=== PATIENT | male | born 1965 | race African-American/Black ===

== ENCOUNTER 2021-04-27 04:30 | Day surgery (SDC) | payer OTHER ==
[2021-04-26 11:29] VITALS: BMI 34.0
[2021-04-27 06:27] VITALS: BP 137/79; PULSE 60; TEMP 97
[2021-04-27] MEDS ORDERED: BUPIVACAINE HCL/PF 0.25% (2.5MG/ML) 10 ML VIAL ONE (07:18)
[2021-04-27] MEDS ORDERED: LIDOCAINE HCL/PF 1% SDV 5ML VIAL ONE (07:18)
[2021-04-27] MEDS ORDERED: BUPIVACAINE HCL/PF 0.5% (5MG/ML) 10 ML VIAL ONE (07:19)
[2021-04-27] MEDS ORDERED: BUPIVACAINE HCL/PF 0.75% 10 ML VIAL ONE (07:19)
[2021-04-27] MEDS ORDERED: DEXAMETHASONE SOD PHOSPHATE 10 MG/1 ML VIAL ONE (08:47)
== END 2021-04-27 08:40 | disposition home or self-care (01) ==
LOC: JASU-SURG 04:30
PROVIDERS: ATTEND Pain Medicine Pain Medicine
DX: Z53.8 Procedure and treatment not carried out for other reasons (principal)
CPT/HCPCS: J1100

== ENCOUNTER 2021-04-27 08:48 | Emergency (ER) | payer OTHER ==
[2021-04-27 08:56] VITALS: BP 139/99; PULSE 60; TEMP 97.8; BMI 34.4
[2021-04-27] MEDS ORDERED: ACETAMINOPHEN 1000 MG/100 ML VIAL (NON FORMULARY) IVPB ONE (10:34)
[2021-04-27] MEDS ORDERED: ACETAMINOPHEN INJECTION 100 ML IVPB ONE (11:14)
[2021-04-27 12:21] LABS: BASO % 0.7 % (0-2.0); EOS % 2.8 % (0-4.5); HEMATOCRIT 32.8 % (35.4-49); LYMPH % 23.9 % (8-40); MCH 27.7 pg (25.7-33.7); MCHC 33.5 g/dl (32.0-35.9); MEAN CELL VOLUME 82.7 fl (80-96); MEAN PLT VOLUME 7.6 fl (7.5-11.1); MONO % 6.3 % (3.8-10.2); NEUT % 66.3 % (42.8-82.8); PLATELET COUNT 415 10^3/uL (134-434); RBC 3.97 M/mm3 (4.00-5.60); RDW 15.4 % (11.9-15.9); WHITE BLOOD COUNT 7.7 K/mm3 (4.0-10.0)
[2021-04-27 12:29] LABS: INR 0.86 (0.83-1.09); PROTHROMBIN TIME (PATIENT) 10.6 SEC (9.7-13.0)
[2021-04-27 12:31] LABS: ACTIVATED PTT 32.9 SECONDS (25.2-36.5)
[2021-04-27 12:47] LABS: CHLORIDE 108 mmol/L (98-107); SODIUM 142 mmol/L (136-145)
[2021-04-27 12:49] LABS: ANION GAP 8 MMOL/L (8-16); CO2 27 mmol/L (21-32); GLUCOSE,RANDOM 100 mg/dL (74-106)
[2021-04-27 12:50] LABS: ALBUMIN 2.7 g/dl (3.4-5.0); BLOOD UREA NITROGEN 16.3 mg/dL (7-18); MAGNESIUM 1.8 mg/dL (1.8-2.4)
[2021-04-27 12:53] LABS: CREATININE 1.3 mg/dL (0.55-1.3); SGOT/AST 9 U/L (15-37); SGPT/ALT 18 U/L (13-61)
[2021-04-27 12:54] LABS: BILIRUBIN,TOTAL 0.1 mg/dL (0.2-1); TOT PROT 7.2 g/dl (6.4-8.2)
[2021-04-27 12:55] LABS: ALK PHOS 117 U/L (45-117)
[2021-04-27] MEDS ORDERED: KETOROLAC TROMETHAMINE 30 MG/1 ML VIAL IVPUSH ONE (14:45)
[2021-04-27] MEDS ORDERED: KETOROLAC TROMETHAMINE 30 MG/1 ML VIAL ONE (14:53)
== END 2021-04-27 17:39 | disposition home or self-care (01) ==
LOC: JER 08:48
PROC: 3E033NZ Introduction of Analgesics, Hypnotics, Sedatives into Peripheral Vein, Percutaneous Approach (ICD-10-PCS; principal; 2021-04-27)
PROC: 3E0333Z Introduction of Anti-inflammatory into Peripheral Vein, Percutaneous Approach (ICD-10-PCS; 2021-04-27)
DX: J92.9 Pleural plaque without asbestos (principal)
CPT/HCPCS: 36415; 71046-TC-FY; 71250-TC; 80053; 82550; 83735; 84484; 85025; 85610; 85730; 93005; 93010; 96374; 96375; 99285-25; J0131

== ENCOUNTER → 2021-05-11 | Day surgery (SDC) | payer OTHER ==
[~2021-05-11] MED LIST: BUPIVACAINE HCL/PF 0.5% (5MG/ML) 10 ML VIAL ONE; DEXAMETHASONE SOD PHOSPHATE 10 MG/1 ML VIAL ONE; LIDOCAINE HCL/PF 1% SDV 5ML VIAL ONE
== END | disposition home or self-care (01) ==
LOC: JASU-SURG 04:30
PROVIDERS: ATTEND Pain Medicine Pain Medicine
DX: Z53.8 Procedure and treatment not carried out for other reasons (principal)
CPT/HCPCS: J1100

== ENCOUNTER 2023-10-16 02:00 | Inpatient (IN) | payer OTHER ==
[2023-10-16] MEDS ORDERED: morphine SULFATE 4 MG/ML VIAL ONE ×2 (02:20→05:59)
[2023-10-16] MEDS ORDERED: ONDANSETRON 4 MG/2 ML VIAL ONE ×2 (02:20→11:53)
[2023-10-16] MEDS ORDERED: ACETAMINOPHEN INJECTION 100 ML IVPB ONE ×2 (02:20→11:53)
[2023-10-16] MEDS: ONDANSETRON 4 MG/2 ML VIAL IVPUSH ONE (02:40)
[2023-10-16] MEDS: ACETAMINOPHEN 1000 MG/100 ML BAG IVPB ONE (02:40)
[2023-10-16] MEDS: morphine CARPU-JECT 4 MG/1 ML DISP.SYRIN IVPUSH ONE ×2 (02:40→06:09)
[2023-10-16] MEDS: LACTATED RINGERS SOLUTION 1,000 ML/1,000 ML INFUS.BAG IV SCH (02:41)
[2023-10-16 02:47] LABS: BASO % 0.6 % (0-2.0); EOS % 0.2 % (0-4.5); HEMATOCRIT 42.1 % (35.4-49); HEMOGLOBIN 14.1 GM/dL (11.7-16.9); LYMPH % 14.5 % (8-40); MCH 29.6 pg (25.7-33.7); MCHC 33.4 g/dl (32.0-35.9); MEAN CELL VOLUME 88.7 fl (80-96); MEAN PLT VOLUME 8.4 fl (7.5-11.1); MONO % 5.6 % (3.8-10.2); NEUT % 79.1 % (42.8-82.8); PLATELET COUNT 293 10^3/uL (134-434); RBC 4.75 M/mm3 (4.00-5.60)
[2023-10-16 02:53] LABS: VENOUS BASE EXCESS -0.2 mmol/L (-2-2); VENOUS O2 SATURATION 42.5 % (70-80); VENOUS PCO2 34.2 mmHg (38-52); VENOUS PH 7.447 (7.310-7.410)
[2023-10-16 03:04] LABS: INR 0.92 (0.83-1.09); PROTHROMBIN TIME (PATIENT) 10.7 SEC (9.7-13.0)
[2023-10-16 03:06] LABS: ACTIVATED PTT 30.2 SECONDS (25.2-36.5)
[2023-10-16 03:24] LABS: CHLORIDE 103 mmol/L (98-107); SODIUM 134 mmol/L (136-145)
[2023-10-16 03:26] LABS: CALCIUM 8.9 mg/dL (8.5-10.1)
[2023-10-16 03:27] LABS: BLOOD UREA NITROGEN 10.4 mg/dL (7-18); CO2 22 mmol/L (21-32); GLUCOSE,RANDOM 90 mg/dL (74-106)
[2023-10-16 03:30] LABS: CREATININE 1.2 mg/dL (0.55-1.3); SGOT/AST 55 U/L (15-37)
[2023-10-16 03:31] LABS: BILIRUBIN,TOTAL 0.4 mg/dL (0.2-1); TOT PROT 7.6 g/dl (6.4-8.2)
[2023-10-16 03:33] LABS: ALK PHOS 94 U/L (45-117)
[2023-10-16 03:46] LABS: ANION GAP 9 mmol/L (4-13); POTASSIUM 7.3 mmol/L (3.5-5.1); SGPT/ALT 24 U/L (13-61)
[2023-10-16 04:19] LABS: LACTIC ACID 3.4 mmol/L (0.4-2.0)
[2023-10-16] MEDS: DEXTROSE 5%-LACTATED RINGERS 1,000 ML IV SCH ×2 (04:56→21:48)
[2023-10-16 04:59] LABS: CALCIUM 8.2 mg/dL (8.5-10.1)
[2023-10-16 05:00] LABS: BLOOD UREA NITROGEN 8.6 mg/dL (7-18)
[2023-10-16 05:03] LABS: CREATININE 0.8 mg/dL (0.55-1.3)
[2023-10-16] MEDS ORDERED: ACETAMINOPHEN 1000 MG/100 ML BAG IVPB PRN ×3 (06:05→17:02)
[2023-10-16] MEDS ORDERED: morphine CARPU-JECT 4 MG/1 ML DISP.SYRIN IVPUSH PRN (06:05)
[2023-10-16] MEDS: ONDANSETRON 4 MG/2 ML VIAL IVPUSH SCH ×2 (06:17→18:15)
[2023-10-16] MEDS: SODIUM CHLORIDE 1,000 ML IV SCH (06:17)
[2023-10-16 09:23] VITALS: BMI 26.3
[2023-10-16 09:29] LABS: EOS % 0.5 % (0-4.5); HEMATOCRIT 39.7 % (35.4-49); HEMOGLOBIN 13.1 GM/dL (11.7-16.9); LYMPH % 21.3 % (8-40); MCH 29.3 pg (25.7-33.7); MEAN CELL VOLUME 88.8 fl (80-96); MEAN PLT VOLUME 8.9 fl (7.5-11.1); MONO % 5.6 % (3.8-10.2); NEUT % 71.6 % (42.8-82.8); PLATELET COUNT 262 10^3/uL (134-434); RBC 4.47 M/mm3 (4.00-5.60); RDW 14.6 % (11.9-15.9); WHITE BLOOD COUNT 10.5 K/mm3 (4.0-10.0)
[2023-10-16 09:49] LABS: POTASSIUM 4.2 mmol/L (3.5-5.1)
[2023-10-16 09:52] LABS: CALCIUM 8.7 mg/dL (8.5-10.1)
[2023-10-16 09:53] LABS: BLOOD UREA NITROGEN 7.6 mg/dL (7-18)
[2023-10-16 09:56] LABS: CREATININE 0.8 mg/dL (0.55-1.3); PHOSPHOROUS 4.3 mg/dL (2.5-4.9)
[2023-10-16 09:57] LABS: BILIRUBIN,TOTAL 0.6 mg/dL (0.2-1); TOT PROT 6.5 g/dl (6.4-8.2)
[2023-10-16] MEDS: NICOTINE 7 MG/24 HOURS TOPICAL PATCH TD SCH (10:00)
[2023-10-16] MEDS ORDERED: SUCCINYLCHOLINE CHLORIDE 200 MG/10 ML SYRINGE ONE (11:29)
[2023-10-16] MEDS ORDERED: FENTANYL CITRATE/PF 50 MCG/ML VIAL ONE ×3 (11:29→16:31)
[2023-10-16] MEDS ORDERED: PROPOFOL 20 ML ONE (11:29)
[2023-10-16] MEDS ORDERED: ROCURONIUM BROMIDE 50 MG/5 ML SYRINGE ONE ×3 (11:42→15:20)
[2023-10-16] MEDS ORDERED: SUGAMMADEX SODIUM 200 MG/2 ML VIAL ONE (11:43)
[2023-10-16] MEDS ORDERED: DEXAMETHASONE SOD PHOSPHATE 4 MG/1 ML VIAL ONE (11:53)
[2023-10-16] MEDS ORDERED: cefOXitin SODIUM 2 GM VIAL (RESTRICTED TO ID) IVPB ONE (11:53)
[2023-10-16] MEDS ORDERED: KETOROLAC TROMETHAMINE 30 MG/1 ML VIAL ONE (11:53)
[2023-10-16] MEDS: cefOXitin SODIUM 2 GM VIAL (RESTRICTED TO ID) IVPB ONE (11:53)
[2023-10-16] MEDS: BUPIVACAINE HCL/PF 0.25% (2.5MG/ML) 10 ML VIAL IJ ONE ×3 (12:05→16:30)
[2023-10-16] MEDS: CHLORHEXIDINE GLUCONATE 4% CLEANSER FOR DECOLONIZATION TP SCH (18:45)
[2023-10-16] MEDS ORDERED: ONDANSETRON 4 MG/2 ML VIAL IVPUSH PRN (21:44)
[2023-10-17 08:49] LABS: HEMATOCRIT 38.7 % (35.4-49); HEMOGLOBIN 12.6 GM/dL (11.7-16.9); MCH 29.1 pg (25.7-33.7); MCHC 32.4 g/dl (32.0-35.9); MEAN CELL VOLUME 89.6 fl (80-96); MEAN PLT VOLUME 8.2 fl (7.5-11.1); PLATELET COUNT 247 10^3/uL (134-434); RBC 4.32 M/mm3 (4.00-5.60); RDW 14.5 % (11.9-15.9); WHITE BLOOD COUNT 7.8 K/mm3 (4.0-10.0)
[2023-10-17 09:09] LABS: CALCIUM 8.4 mg/dL (8.5-10.1)
[2023-10-17 09:10] LABS: ALBUMIN 2.6 g/dl (3.4-5.0); BLOOD UREA NITROGEN 8.1 mg/dL (7-18)
[2023-10-17 09:13] LABS: PHOSPHOROUS 4.1 mg/dL (2.5-4.9)
[2023-10-17 09:14] LABS: BILIRUBIN,TOTAL 0.7 mg/dL (0.2-1)
[2023-10-17 09:15] LABS: TOT PROT 5.8 g/dl (6.4-8.2)
[2023-10-17] MEDS: oxyCODONE HCL 5 MG TABLET PO PRN (09:18)
[2023-10-17] MEDS: NICOTINE 7 MG/24 HOURS TOPICAL PATCH TD SCH (09:18)
[2023-10-17] MEDS: LACTATED RINGERS SOLUTION 1,000 ML IV SCH (09:18)
[2023-10-18 07:59] LABS: HEMATOCRIT 40.5 % (35.4-49); HEMOGLOBIN 13.2 GM/dL (11.7-16.9); MCH 29.2 pg (25.7-33.7); MCHC 32.5 g/dl (32.0-35.9); MEAN CELL VOLUME 89.9 fl (80-96); MEAN PLT VOLUME 8.3 fl (7.5-11.1); PLATELET COUNT 253 10^3/uL (134-434); POTASSIUM 4.1 mmol/L (3.5-5.1); RDW 14.5 % (11.9-15.9); WHITE BLOOD COUNT 7.3 K/mm3 (4.0-10.0)
[2023-10-18 08:06] LABS: BLOOD UREA NITROGEN 6.4 mg/dL (7-18); CALCIUM 8.8 mg/dL (8.5-10.1)
[2023-10-18 08:07] LABS: ALBUMIN 2.5 g/dl (3.4-5.0)
[2023-10-18 08:10] LABS: CREATININE 0.9 mg/dL (0.55-1.3)
[2023-10-18 08:11] LABS: BILIRUBIN,TOTAL 0.6 mg/dL (0.2-1); TOT PROT 5.8 g/dl (6.4-8.2)
[2023-10-18] MEDS: diphenhydrAMINE HCL 25 MG CAPSULE (FP) PO ONE (10:18)
[2023-10-18] MEDS: KETOROLAC TROMETHAMINE 15 MG/ML VIAL IM SCH (10:33)
[2023-10-18] MEDS: ACETAMINOPHEN 1000 MG/100 ML BAG IVPB SCH (15:34)
[2023-10-19] MEDS: ENOXAPARIN NA (PORCINE) 40 MG/0.4 ML DISP.SYRIN SQ SCH (09:21)
[2023-10-19 09:50] VITALS: RESP 20
[2023-10-19 10:07] LABS: HEMATOCRIT 38.9 % (35.4-49); MCH 29.5 pg (25.7-33.7); MCHC 33.3 g/dl (32.0-35.9); MEAN CELL VOLUME 88.6 fl (80-96); MEAN PLT VOLUME 8.6 fl (7.5-11.1); PLATELET COUNT 247 10^3/uL (134-434); RBC 4.39 M/mm3 (4.00-5.60); RDW 14.7 % (11.9-15.9); WHITE BLOOD COUNT 6.6 K/mm3 (4.0-10.0)
[2023-10-19] MEDS: POLYETHYLENE GLYCOL (HEALTHYLAX) 3350 17 GM PACKET PO ONE (10:12)
[2023-10-19] MEDS: diphenhydrAMINE HCL 25 MG CAPSULE (FP) PO ONE (10:12)
[2023-10-19 10:22] LABS: POTASSIUM 3.8 mmol/L (3.5-5.1)
[2023-10-19 10:32] LABS: CALCIUM 8.6 mg/dL (8.5-10.1)
[2023-10-19] MEDS ORDERED: KETOROLAC TROMETHAMINE 15 MG/ML VIAL IM PRN (10:32)
[2023-10-19 10:33] LABS: ALBUMIN 2.5 g/dl (3.4-5.0); BLOOD UREA NITROGEN 9.9 mg/dL (7-18)
[2023-10-19 10:36] LABS: PHOSPHOROUS 4.5 mg/dL (2.5-4.9)
[2023-10-19 10:37] LABS: BILIRUBIN,TOTAL 0.6 mg/dL (0.2-1); TOT PROT 5.7 g/dl (6.4-8.2)
[2023-10-19 14:36] VITALS: BP 97/62; PULSE 61; TEMP 98.6
[2023-10-19] MEDS: oxyCODONE HCL 5 MG TABLET PO PRN (14:39)
== END 2023-10-19 16:37 | disposition home or self-care (01) | DRG 228 ==
LOC: JER 02:00 → JERBED 04:30 → J6S 06:50
PROVIDERS: ADMIT Internal Medicine; ATTEND Internal Medicine
PROC: 8E0W0CZ Robotic Assisted Procedure of Trunk Region, Open Approach (ICD-10-PCS; 2023-10-16)
PROC: 0WUF0JZ Supplement Abdominal Wall with Synthetic Substitute, Open Approach (ICD-10-PCS; principal; 2023-10-16 12:00)
DX: K42.0 Umbilical hernia with obstruction, without gangrene (principal); E87.20 Acidosis, unspecified; K56.609 Unspecified intestinal obstruction, unspecified as to partial versus complete obstruction; G47.30 Sleep apnea, unspecified; J44.9 Chronic obstructive pulmonary disease, unspecified; I44.0 Atrioventricular block, first degree; F17.210 Nicotine dependence, cigarettes, uncomplicated
CPT/HCPCS: 36415; 74177-TC; 80048; 80053; 82803; 83605; 83690; 83735; 84100; 85025; 85027; 85610; 85730; 86850; 86900; 86901; 93005; 93010; 94010; 94760; 97116-GP; 97162-GP; 99285-25; C1781; J0131; Q9967